=== PATIENT | male | born 1985 | race Caucasian/White ===

== ENCOUNTER 2024-07-24 19:45 | Inpatient (IN) | payer SELFPAY ==
[~2024-07-24] VITALS: Ht 160 cm; Wt 89.5 kg
[2024-07-24] MEDS: PANTOPRAZOLE SODIUM 40 MG/VIAL IV ONE (00:40)
[2024-07-24] MEDS: SODIUM CHLORIDE 0.9% (SEPSIS BOLUS) IV ONE (00:40)
[2024-07-24] MEDS: ONDANSETRON HCL 4MG/2ML INJ IV ONE (00:40)
[2024-07-24] MEDS: MORPHINE SULFATE 4 MG/ML INJ (FOR IV/IM USE) IV ONE (00:40)
[2024-07-24] MEDS: ONDANSETRON HCL 4MG TABLET PO ONE (01:40)
[2024-07-24 22:41] LABS: HEMATOCRIT. 38.8 % (42.0-52.0); HEMOGLOBIN. 12.9 g/dL (14.0-18.0); MEAN CORPUSCULAR HEMOGLOBIN 27.5 pg (28.0-32.0); MEAN CORPUSCULAR HGB CONC 33.2 g/dL (31.0-37.0); MEAN PLATELET VOLUME 9.1 fl (7.4-10.4); PLATELET 118 x1000/uL (130-400); RED BLOOD CELL COUNT 4.67 mill/uL (4.7-6.1); RED CELL DISTRIBUTION WIDTH 21.9 % (11.6-14.6); WHITE BLOOD COUNT 14.5 x1000/uL (4.5-11.0)
[2024-07-24 22:44] LABS: DIFFERENTIAL COMMENT 1
[2024-07-24 22:59] LABS: CHLORIDE 82 mEq/L (98-107); POTASSIUM 3.1 mEq/L (3.5-5.1); SODIUM 131 mEq/L (136-145)
[2024-07-24 23:00] LABS: CARBON DIOXIDE 26 mEq/L (21-32)
[2024-07-24 23:01] LABS: CALCIUM 10.6 mg/dL (8.7-10.4)
[2024-07-24 23:05] LABS: CREATININE 1.2 mg/dL (0.6-1.3); GLUCOSE 184 mg/dL (70-105)
[2024-07-24 23:06] LABS: UREA NITROGEN BLOOD 12 mg/dL (9-23)
[2024-07-24 23:07] LABS: ALANINE AMINOTRANSFERASE 232 IU/L (10-49); ALBUMIN 5.4 g/dL (3.2-4.8); ASPARTATE AMINOTRANSFERASE 284 IU/L (<34)
[2024-07-24 23:08] LABS: BILIRUBIN TOTAL 2.9 mg/dL (0.1-1.0); PROTEIN TOTAL 9.3 g/dL (6.0-8.3)
[2024-07-24 23:27] LABS: PLATELET ESTIMATE DECREASED
[2024-07-24 23:28] LABS: ANISOCYTOSIS 1+
[2024-07-24] MEDS ORDERED: CEFTRIAXONE 1GM/50ML 50 ML IV ONE (23:30)
[2024-07-24 23:38] LABS: PROTHROMBIN TIME 11.6 sec (9.6-11.0)
[2024-07-25 00:11] LABS: LACTIC ACID 5.8 mmol/L (0.4-2.0)
[2024-07-25] MEDS ORDERED: CLONIDINE 0.1MG TABLET PO PRN (01:30)
[2024-07-25] MEDS ORDERED: IPRATROPIUM/ALBUTEROL 0.5-3(2.5)MG/3ML NEB HHN PRN (01:30)
[2024-07-25] MEDS: PIPERACILLIN/TAZO 3.375G/50ML 50 ML IV SCH (01:30)
[2024-07-25] MEDS ORDERED: ACETAMINOPHEN 325MG TABLET PO PRN (01:30)
[2024-07-25] MEDS ORDERED: DOCUSATE SODIUM 100MG CAPSULE PO PRN (01:30)
[2024-07-25] MEDS ORDERED: MAGNESIUM/ALUMINUM HYDROXIDE/SIMETHICONE 30ML UDC PO PRN (01:30)
[2024-07-25] MEDS: SODIUM CHLORIDE 0.9% 1,000 ML IV SCH (02:00)
[2024-07-25] MEDS: ONDANSETRON HCL 4MG/2ML INJ IV PRN (04:05)
[2024-07-25] MEDS: MORPHINE SULFATE 2 MG/ML INJ (NOT FOR IM USE) IV PRN (04:05)
[2024-07-25] MEDS ORDERED: PIPERACILLIN/TAZO 3.375G/50ML 50 ML IV SCH (06:00)
[2024-07-25 06:26] VITALS: BP 137/79; PULSE 115; RESP 16; TEMP 36.4736
[2024-07-25] MEDS ORDERED: NALOXONE HCL 0.4MG/ML VIAL IV PRN (06:30)
[2024-07-25 06:41] VITALS: BP 137/79; PULSE 115; RESP 16; TEMP 36.44736; O2SAT 97
[2024-07-25 08:00] VITALS: BP 134/80; PULSE 91; RESP 20; TEMP 37.16964; O2SAT 96
[2024-07-25] MEDS: PANTOPRAZOLE SODIUM 40 MG/VIAL IV SCH (09:00)
[2024-07-25] MEDS: HYDROCODONE/ACETAMINOPHEN 5/325MG TABLET PO PRN (11:44)
[2024-07-25 12:00] VITALS: BP 140/77; PULSE 80; RESP 20; TEMP 36.6696; O2SAT 98
[2024-07-25] MEDS: PIPERACILLIN/TAZO 3.375G/100ML 100 ML IV SCH (14:00)
[2024-07-25] MEDS: DILTIAZEM HCL 30MG TABLET PO SCH (15:09)
[2024-07-25 16:00] VITALS: BP 151/97; PULSE 83; RESP 20; TEMP 36.6696; O2SAT 98
[2024-07-25] MEDS: SUCRALFATE 1G TABLET PO SCH (16:56)
[2024-07-25 18:33] LABS: CLARITY URINE CLEAR (CLEAR); COLOR URINE DARK YELLOW (YELLOW); GLUCOSE URINE NEGATIVE (NEGATIVE); KETONES URINE TRACE (NEGATIVE); LEUKOCYTE ESTERASE URINE NEGATIVE (NEGATIVE); NITRITE URINE NEGATIVE (NEGATIVE); OCCULT BLOOD URINE NEGATIVE (NEGATIVE); PH URINE >=9.0 (4.5-8.0); PROTEIN URINE 1+ (NEGATIVE); SPECIFIC GRAVITY URINE 1.019 (1.005-1.030)
[2024-07-25 18:56] LABS: *AMPHETAMINES SCREEN URINE NEGATIVE (NEGATIVE); *BARBITURATES SCREEN URINE NEGATIVE (NEGATIVE); *BENZODIAZEPINES SCREEN URINE NEGATIVE (NEGATIVE); *COCAINE SCREEN URINE NEGATIVE (NEGATIVE); METHADONE URINE SCREEN NEGATIVE (NEGATIVE); OPIATES URINE SCREEN PRESUMPTIVE POSITIVE (NEGATIVE); PHENCYCLIDINE URINE SCREEN NEGATIVE (NEGATIVE)
[2024-07-25 18:57] LABS: CANNABINOID URINE SCREEN NEGATIVE (NEGATIVE); ECSTASY MDMA SCREEN URINE NEGATIVE (NEGATIVE)
[2024-07-25 19:15] LABS: BACTERIA URINE NONE SEEN; RBC URINE NONE SEEN /hpf (0-2); SQUAMOUS EPITHELIAL CELL URINE NONE SEEN /lpf (RARE/1+); WBC URINE NONE SEEN /hpf (0-2)
[2024-07-25 19:20] LABS: BASOPHILS % 0.2 % (0.0-2.0); HEMATOCRIT. 34.7 % (42.0-52.0); HEMOGLOBIN. 11.3 g/dL (14.0-18.0); LYMPHOCYTES % 9.8 % (20.0-50.0); MEAN CORPUSCULAR HEMOGLOBIN 27.6 pg (28.0-32.0); MEAN CORPUSCULAR HGB CONC 32.5 g/dL (31.0-37.0); MEAN CORPUSCULAR VOLUME 84.9 fL (80.0-94.0); MEAN PLATELET VOLUME 10.3 fl (7.4-10.4); MONOCYTES % 6.3 % (2.0-8.0); NEUTROPHILS % 83.7 % (40.0-76.0); PLATELET 63 x1000/uL (130-400); RED BLOOD CELL COUNT 4.09 mill/uL (4.7-6.1); RED CELL DISTRIBUTION WIDTH 22.1 % (11.6-14.6); WHITE BLOOD COUNT 7.1 x1000/uL (4.5-11.0)
[2024-07-25 19:27] LABS: DIFFERENTIAL COMMENT 1
[2024-07-25 19:31] LABS: CARBON DIOXIDE 27 mEq/L (21-32); CHLORIDE 93 mEq/L (98-107); SODIUM 131 mEq/L (136-145)
[2024-07-25 19:32] LABS: CALCIUM 9.3 mg/dL (8.7-10.4)
[2024-07-25 19:33] LABS: D-DIMER 5.68 mg/L FEU (<0.50); INR 1.1; PROTHROMBIN TIME 11.7 sec (9.6-11.0)
[2024-07-25 19:36] LABS: CREATININE 0.9 mg/dL (0.6-1.3)
[2024-07-25 19:37] LABS: GLUCOSE 90 mg/dL (70-105); TRIGLYCERIDE 139 mg/dL (0-150); UREA NITROGEN BLOOD 11 mg/dL (9-23)
[2024-07-25 19:38] LABS: ALANINE AMINOTRANSFERASE 138 IU/L (10-49); ALBUMIN 4.1 g/dL (3.2-4.8); ASPARTATE AMINOTRANSFERASE 126 IU/L (<34); CHOLESTEROL 202 mg/dL (<200); CREATINE KINASE MB FRACTION 0.6 ng/mL (0.5-3.6); LDL CHOLESTEROL 117 mg/dL (5-100); TROPONIN I HIGH SENSITIVITY 4 ng/L (3.0-53)
[2024-07-25 19:39] LABS: BILIRUBIN DIRECT 0.6 mg/dL (<=3.0); BILIRUBIN TOTAL 1.6 mg/dL (0.1-1.0); HDL CHOLESTEROL 56 mg/dL (>55); PHOSPHORUS 3.2 mg/dL (2.5-4.9); PROTEIN TOTAL 6.8 g/dL (6.0-8.3)
[2024-07-25 19:42] LABS: CREATINE KINASE 197 IU/L (46-171)
[2024-07-25 20:00] VITALS: BP 158/97; PULSE 109; RESP 20; TEMP 37.83636; O2SAT 97
[2024-07-25] MEDS: POTASSIUM CHLORIDE 20MEQ TABLET SR PO PRN (21:47)
[2024-07-26] VITALS (8 sets, daily range): BP systolic 129–157; BP diastolic 79–108; PULSE 74–103; RESP 16–20; TEMP 36.00288–36.89184; O2SAT 96–99
[2024-07-26 07:21] LABS: HEMOGLOBIN. 12.2 g/dL (14.0-18.0); MEAN CORPUSCULAR HEMOGLOBIN 27.9 pg (28.0-32.0); MEAN CORPUSCULAR HGB CONC 33.1 g/dL (31.0-37.0); MEAN CORPUSCULAR VOLUME 84.3 fL (80.0-94.0); MEAN PLATELET VOLUME 10.6 fl (7.4-10.4); PLATELET 59 x1000/uL (130-400); RED BLOOD CELL COUNT 4.39 mill/uL (4.7-6.1); RED CELL DISTRIBUTION WIDTH 21.5 % (11.6-14.6); WHITE BLOOD COUNT 9.8 x1000/uL (4.5-11.0)
[2024-07-26 07:35] LABS: DIFFERENTIAL COMMENT 1
[2024-07-26 07:42] LABS: CARBON DIOXIDE 26 mEq/L (21-32); CHLORIDE 96 mEq/L (98-107); POTASSIUM 2.9 mEq/L (3.5-5.1); SODIUM 133 mEq/L (136-145); TROPONIN I HIGH SENSITIVITY 5 ng/L (3.0-53)
[2024-07-26 07:43] LABS: CALCIUM 9.1 mg/dL (8.7-10.4)
[2024-07-26 07:47] LABS: CREATININE 0.8 mg/dL (0.6-1.3); GLUCOSE 85 mg/dL (70-105)
[2024-07-26 07:48] LABS: UREA NITROGEN BLOOD 11 mg/dL (9-23)
[2024-07-26 07:49] LABS: ALANINE AMINOTRANSFERASE 117 IU/L (10-49); ALBUMIN 4.1 g/dL (3.2-4.8); ASPARTATE AMINOTRANSFERASE 105 IU/L (<34)
[2024-07-26 07:50] LABS: BILIRUBIN DIRECT 0.7 mg/dL (<=3.0); BILIRUBIN TOTAL 1.7 mg/dL (0.1-1.0); PHOSPHORUS 2.7 mg/dL (2.5-4.9); PROTEIN TOTAL 6.6 g/dL (6.0-8.3)
[2024-07-26] MEDS: POTASSIUM CHLORIDE 20MEQ TABLET SR PO NR ×2 (09:00→12:21)
[2024-07-26 09:07] LABS: HEPATITIS B SURFACE ANTIGEN NEGATIVE (Negative)
[2024-07-26 09:27] LABS: HEPATITIS A AB IGM NEGATIVE (Negative)
[2024-07-26 09:28] LABS: HEPATITIS B CORE AB IGM NEGATIVE (Negative); HEPATITIS C AB NON REACTIVE (Neg) (Negative)
[2024-07-26] MEDS: MAGNESIUM 2 G PREMIX 50 ML IV NR (12:23)
[2024-07-26 17:29] LABS: PLATELET ESTIMATE DECREASED
[2024-07-26] MEDS ORDERED: ATORVASTATIN CALCIUM 40MG TABLET PO SCH (21:00)
== END 2024-07-26 19:30 | disposition home or self-care (01) | DRG 243 ==
LOC: ER 19:45 → 5WST 07-25 00:17 → EDBEDREQ 07-25 00:20 → 5WST 07-25 06:05 → MICUSO 07-25 07:40 → 5WST 07-25 07:43
PROVIDERS: ADMIT Family Medicine Adult Medicine; ATTEND Family Medicine Adult Medicine
DX: K21.00 Gastro-esophageal reflux disease with esophagitis, without bleeding (principal); D69.6 Thrombocytopenia, unspecified; E87.20 Acidosis, unspecified; K76.0 Fatty (change of) liver, not elsewhere classified; E87.6 Hypokalemia; F10.10 Alcohol abuse, uncomplicated; K29.70 Gastritis, unspecified, without bleeding; D72.829 Elevated white blood cell count, unspecified; E78.5 Hyperlipidemia, unspecified; E83.42 Hypomagnesemia; G89.29 Other chronic pain; I10 Essential (primary) hypertension; K59.00 Constipation, unspecified; Z86.79 Personal history of other diseases of the circulatory system
CPT/HCPCS: 36415; 74176; 76700; 80048; 80061; 80076; 80305; 80320; 81003; 82550; 82553; 83605; 83735; 84100; 84145; 84484; 85025; 85379; 86705; 86709; 86850; 86900; 87340; 93005; 93970; 99285; J0696; J2270; J2405; J2470; J2543; J3475; J7030; G0480